=== PATIENT | female | born 1990 | race Caucasian/White ===

== ENCOUNTER 2018-11-26 16:27 | Emergency (ER) | payer MEDICAID ==
[~2018-11-26] VITALS: Ht 157.5 cm; Wt 104.3 kg
[2018-11-26 16:34] VITALS: BP 136/89
[2018-11-26 19:22] VITALS: BP 123/79
== END 2018-11-26 19:22 | disposition home or self-care (01) ==
LOC: MED 16:27
DX: J06.9 Acute upper respiratory infection, unspecified (principal); Z79.899 Other long term (current) drug therapy
CPT/HCPCS: 81002; 81025; 99283

== ENCOUNTER 2022-01-14 10:37 | Emergency (ER) | payer MEDICAID ==
[~2022-01-14] VITALS: Ht 157.5 cm; Wt 98.0 kg
[2022-01-14 10:43] VITALS: BP 154/85
--- NOTE | 2022-01-14 10:59 | NUR ---
AMBULATED TO BED 2
--- NOTE | 2022-01-14 11:08 | NUR ---
31 Y/O FEMALE C/O BODY PAIN X3 MONTHS. PT STATES WORSENING THE LAST TWO DAYS. REPORTS TAKING IBUPROFEN WITH NO RELIEF. PT STATES SHE HAS SEEN HER PCP BUT HAS NOT FOLLOWED UP TO HAVE TESTS DONE. DENIES N/V. DENIES FEVER/CHILLS. DENIES PMH NKA
--- NOTE | 2022-01-14 11:15 | NUR ---
DR. HUIZAR AT PT BEDSIDE FOR FURTHER EVALUATION.
[2022-01-14] MEDS ORDERED: KETOROLAC 30 MG/ML VIAL IM ONE (11:20)
--- NOTE | 2022-01-14 12:06 | NUR ---
PT BLOOD SENT TO LAB VIA NIRAV SUTTON
[2022-01-14 12:33] LABS: BASOPHILS % (AUTO) 0.3 % (0.0-2.0); EOSINOPHILS # (AUTO) 0.1 K/uL (0-0.4); EOSINOPHILS % (AUTO) 1.6 % (0.0-4.0); HEMATOCRIT 37.8 % (36-48); HEMOGLOBIN 12.9 g/dL (12.0-16.0); LYMPHOCYTES # (AUTO) 2.4 K/uL (2.5-16.5); LYMPHOCYTES % (AUTO) 32.2 % (20.5-51.1); MEAN CORPUSCULAR HEMOGLOBIN 31 pg (27-31); MEAN CORPUSCULAR HGB CONC 34 g/dL (33-37); MEAN CORPUSCULAR VOLUME 90.3 fL (80-94); MONOCYTES # (AUTO) 0.3 K/uL (0.8-1.0); MONOCYTES % (AUTO) 4.5 % (1.7-9.3); NEUTROPHILS # (AUTO) 4.5 K/uL (1.8-7.7); NEUTROPHILS % (AUTO) 61.4 % (42.2-75.2); PLATELET COUNT (AUTO) 206 K/uL (140-450); RED BLOOD CELL COUNT(AUTO) 4.18 MIL/uL (4.20-5.40); RED CELL DISTRIBUTION WIDTH 13.3 % (11.6-13.7); WHITE BLOOD COUNT (AUTO) 7.3 K/uL (4.8-10.8)
[2022-01-14 12:38] VITALS: BP 130/77
[2022-01-14 12:56] LABS: ANION GAP 14.3 (8-16); CARBON DIOXIDE 26.9 mmol/L (21-32); CREATININE 0.5 mg/dL (0.6-1.3); POTASSIUM 5.2 mmol/L (3.5-5.1)
--- NOTE | 2022-01-14 13:09 | NUR ---
PT IN BED, VISIBLE EQUAL RISE AND FALL OF CHEST, VSS, WILL CONTINUE TO MONITOR.
[2022-01-14] MEDS ORDERED: SODIUM ZIRCONIUM CYCLOSILICATE 10 GM POWD.PACK PO ONE (13:25)
[2022-01-14] MEDS ORDERED: NAPR-54 PO (13:27)
[2022-01-14] MEDS ORDERED: DIAZ5TAB8 PO (13:27)
--- NOTE | 2022-01-14 13:36 | NUR ---
DR. HUIZAR AT PT BEDSIDE FOR RE-EVALUATION.
--- NOTE | 2022-01-14 13:54 | NUR ---
IV removed, catheter intact and site benign. Applied folded 4x4 gauze and tape to stop bleeding.
--- NOTE | 2022-01-14 13:55 | NUR ---
Patient discharged with v/s stable. Written and verbal after care instructions ABOUT PSORIATIC ARTHRITIS, MUSCLE PAIN, AND PSORIASIS given and explained. Patient alert, oriented and verbalized understanding of instructions. Ambulatory with steady gait. All questions addressed prior to discharge. ID band removed. Patient advised to follow up with PMD. Rx of VALIUM AND NAPROXEN given. Patient educated on indication of medication including possible reaction and side effects. Opportunity to ask questions provided and answered.
== END 2022-01-14 13:55 | disposition home or self-care (01) ==
LOC: MED 10:37
DX: M79.10 Myalgia, unspecified site (principal); R53.1 Weakness; M79.89 Other specified soft tissue disorders; Z79.899 Other long term (current) drug therapy
CPT/HCPCS: 36415; 80048; 81002; 81025; 85025; 96372; 99283; J1885